=== PATIENT | female | born 1945 | race Caucasian/White ===

== ENCOUNTER → 2016-12-18 | Outpatient (CLI) | payer MEDICARE, OTHER | LOC: MC.RAD 11:06 | DX: Z12.31 Encounter for screening mammogram for malignant neoplasm of breast (principal) ==

== ENCOUNTER → 2017-12-20 | Outpatient (CLI) | payer MEDICARE, OTHER | LOC: MC.RAD 12:59 | DX: Z12.31 Encounter for screening mammogram for malignant neoplasm of breast (principal) ==

== ENCOUNTER → 2018-12-31 | Outpatient (CLI) | payer MEDICARE, OTHER | LOC: MC.RAD 13:25 | DX: Z12.31 Encounter for screening mammogram for malignant neoplasm of breast (principal) ==

== ENCOUNTER → 2020-01-06 | Outpatient (CLI) | payer MEDICARE, OTHER | LOC: MC.RAD 13:19 | DX: Z12.31 Encounter for screening mammogram for malignant neoplasm of breast (principal) ==

== ENCOUNTER → 2021-02-14 | Outpatient (CLI) | payer MEDICARE, OTHER | LOC: MC.RAD 14:20 | DX: Z12.31 Encounter for screening mammogram for malignant neoplasm of breast (principal) ==